=== PATIENT | male | born 2005 | race African-American/Black ===

== ENCOUNTER 2025-01-12 09:05 | Outpatient (AMB) | payer BC, SELFPAY ==
--- NOTE | 2025-01-12 09:07 | MHC.PC.OV ---
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 Intake Note: New Patient Criminal Legal Assistant Required: No Accompanied by: Self / Same As Patient Allergies No Known Allergies Allergy (Verified 01/12/25 09:10) Medication List - Last Reconciled 01/12/25 by Misbah Barrera MD No Known Home Meds Tobacco use date assessed: 01/12/25 Dental Screening Dental Screen Date: 01/12/25 Did you have a dental visit in the last 12 months?: Yes Did you have a dental problem in the last 6 months where you did not have access to dental care?: No Was dental information given to patient?: Patient has dentist HPI HPI Comments History of Present Illness Details History of Present Illness The patient is a 19 year old individual presenting for a general checkup and evaluation of a rash on the upper thigh. Rash on thigh: The patient reports a history of a rash on the upper thigh that began approximately two weeks after a sexual encounter. Initially, the rash was described as fully red with dry skin. The rash resolved over time but the area still turns red with friction, such as rubbing in the shower. The patient denies any itching associated with the rash. The patient previously used hydrocortisone cream for 3-4 days, which helped the rash resolve. The patient had a negative STD test about a month ago. Health Maintenance: The patient has no known past medical history, no prior surgeries, and takes no medications. The patient denies smoking or illicit drug use but reports drinking alcohol on some weekends. The patient is sexually active with multiple partners and reports using condoms. Surgical History: - No known surgical history. Medications: - The patient is not currently taking any medications. - The patient previously used hydrocortisone cream for a rash on the thigh. Social History: - Substance Use: The patient denies smoking and drug use, but reports drinking alcohol on some weekends. - Sexual History: The patient is sexually active with multiple partners and reports using condoms. 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 - Housing: The patient has two houses and sometimes resides in [place]. Diagnostic Results: - STI Testing: The patient reports a negative STI test one month prior to the visit. Past Medical History - No known past medical history. Health Maintenance - Comprehensive laboratory studies will be performed to provide an overall picture of the patient's health. - Lab orders include a complete blood count, comprehensive metabolic panel, chlamydia, gonorrhea, hemoglobin A1c, hepatitis B and C, HIV, lipid panel, magnesium, syphilis screen, thyroid panel, urinalysis, vitamin B12, folate, and vitamin D. - The patient will follow up in two weeks to discuss the lab results. [facility] Medical History (Updated 01/12/25 @ 09:28 by Misbah Barrera MD) Alcohol use Dermatitis Social History (Updated 01/12/25 @ 09:12 by Nicko Kemp CMA) Housing: House Alcohol intake: current Patient Tobacco Use Status: Never used Tobacco e-Cigarette/Vaping Use: Never Used service: No Current occupational status: employed Current occupation: Self Employed Cognitive needs: No Hearing needs: No Vision needs: Yes Questionnaire PHQ-9 Over the last 2 weeks, how often have you been bothered by any of the following problems? 1. Little interest or pleasure in doing things: not at all 2. Feeling down, depressed, or hopeless: not at all 3. Trouble falling or staying asleep, or sleeping too much: not at all 4. Feeling tired or having little energy: not at all 5. Poor appetite or overeating: not at all 6. Feeling bad about yourself - or that you are a failure or have let yourself or your family down: not at all 7. Trouble concentrating on things, such as reading the newspaper or watching television: not at all 8. Moving or speaking so slowly that other people could have noticed. Or the opposite - being so fidgety or restless that you have been moving around a lot more than usual: not at all 9. Thoughts that you would be better off or of hurting yourself in some way: not at all Total score: 0 Depression Screening Interpretation: Negative Depression Screening Done: Yes 03347 - PHQ-9 Billing: Yes Source: Developed by Drs. Milo Hernandez, Charity Hobson, Sebastian Orr and colleagues, with an educational kylee from [employer]. Thrive Questionnaire Date Thrive assessed: 01/12/25 I am a: Patient What is your living situation today?: I have a steady place to live Within the past 12 months, did the food you bought not last and you didn't have the money to get more?: Never true Within the past 12 months, did you worry whether your food would run out before you got money to buy more?: Never true Do you have trouble paying for medicines?: No Do you have trouble getting transportation to medical appointments?: No Do you have trouble paying your heating and electricity bill?: No Do you have trouble taking care of your child, family member or friend?: No Are you currently unemployed and looking for a job?: No Are you interested in more education?: No Please select the resources that you would like help with: None Currently or been in a relationship where the following occur: No concerns reported THRIVE Score: 0 AUDIT C Alcohol Use Questionnaire (AUDIT-C) 1. How often do you have a drink containing alcohol?: 2-3 times a week 2. How many drinks containing alcohol do you have on a typical day when you are drinking?: 7 to 9 3. How often do you have six or more drinks on one occasion?: Weekly Total Score: 9 SANJU-7 AMB Questionnaire SANJU-7 Date SANJU - 7 assessed: 01/12/25 Feeling nervous, anxious, or on edge: 0 = Not at all Not being able to stop or control worryin = Not at all Worrying too much about different things: 0 = Not at all Trouble relaxin = Not at all Being so restless that it is hard to sit still: 0 = Not at all Becoming easily annoyed or irritable: 0 = Not at all Feeling afraid as if something awful might happen: 0 = Not at all Total SANJU-7 score (0-4 normal; 5-9 mild; 10-14 moderate; 15-21 severe): 0 Source: Developed by Drs. Milo Hernandez, Charity Hobson, Sebastian Orr and colleagues, with an educational kylee from [employer]. SANJU-7 Assessment Billing SANJU-7 Assessment Tool: SANJU-7 Assessment 88500 Review of Systems Narrative Review of Systems - Constitutional: Denies fevers and chills. - Integumentary: Reports a history of a rash on the upper thigh that is now resolved but the skin becomes erythematous with friction. - Denies pruritus. - Gastrointestinal: Reports normal bowel function. - Neurological: Reports sleeping well. 10-point ROS reviewed and negative except as noted in HPI Physical exam (Primary Care) Vital Signs: Last Vital Signs Temp 98.1 F 01/12/25 09:13 Pulse 66 01/12/25 09:13 Resp 18 01/12/25 09:13 BP 125/59 L 01/12/25 09:13 Pulse Ox 100 01/12/25 09:13 Oxygen Delivery Method Room Air 01/12/25 09:13 BMI result Body Mass Index 26.4 Tobacco/Smoking Status: Tobacco use Status Tobacco use date assessed 01/12/25 01/12/25 09:15 Patient Tobacco Use Status Never used Tobacco 01/12/25 09:15 e-Cigarette/Vaping Use Never Used 01/12/25 09:15 PHQ-9: PHQ-9 Score PHQ-9: Total score 0 01/12/25 09:15 Depression Screening Interpretation: Negative Thrive Assessment: Date of Thrive Assessment Date Thrive assessed 01/12/25 01/12/25 09:15 Currently or been in a relationship where the following occur: No concerns reported Narrative Physical Exam General: Well-appearing, in no acute distress. Vital signs: Within normal limits. HEENT: Normocephalic, atraumatic. PERRLA, EOMI. Conjunctiva clear, sclera anicteric. Oropharynx clear, mucous membranes moist. TMs intact bilaterally. Neck: Supple, no lymphadenopathy, no thyromegaly, no JVD or carotid bruits. Cardiovascular: RRR, normal S1/S2, no murmurs, rubs, or gallops. Peripheral pulses 2+ and symmetric. No edema. Respiratory: Lungs clear to auscultation bilaterally, no wheezes, rales, or rhonchi. Normal effort. Abdomen: Soft, non-tender, non-distended. Normoactive bowel sounds. No hepatosplenomegaly, no masses. MSK: Full range of motion, no joint swelling or deformity. Normal gait. Skin: Warm, dry, intact. Rash on upper thigh that turns red with friction or rubbing. No itching reported. No other rashes, lesions, or pallor. Neuro: Alert and oriented x3. Cranial nerves II-XII intact. Strength 5/5 throughout. Sensation intact. Reflexes 2+ symmetric. Normal coordination and gait. Psych: Appropriate mood and affect. Normal judgment and insight. Coding Level of Care Code New Pt Level 4 (03664) Diagnoses Dermatitis L30.9 Alcohol use F10.90 Additional Codes SANJU-7 Assessment Billing - SANJU-7 Assessment Tool: SANJU-7 Assessment 91128 ([id number]) PHQ-9 - 19988 - PHQ-9 Billing: Yes ([id number]) Assessment & Plan Assessment & Plan (1) Dermatitis: Code(s): L30.9 - Dermatitis, unspecified Category: Medical (2) Alcohol use: Code(s): F10.90 - Alcohol use, unspecified, uncomplicated Category: Social Hx Plan Consent The patient provided verbal consent for a sexually transmitted disease (STD) screening and comprehensive blood work. Patient was informed and verbally consented to the use of an ambient scribe for clinic note documentation during this visit. Plan 1. Dermatitis Of Thigh - The differential diagnosis for the patient's thigh rash includes dermatitis or a fungal infection. - A trial of a prescription cream will be initiated; the prescription will be sent to the patient's pharmacy after it is confirmed at checkout. Discussion Notes I discussed with the patient that the rash on the thigh could potentially be nothing, or it could be a form of dermatitis or a fungal infection. I explained that I will order a comprehensive set of blood and urine tests to get an overall picture of the patient's health, which will screen for various conditions including STIs, diabetes, cholesterol, and vitamin deficiencies. I informed the patient that a prescription cream will be sent for the rash and that they should get the lab work done today. We will have a follow-up appointment in two weeks to review all the results and address any abnormalities. Patient Instructions - Go to the lab today to have your blood drawn and provide a urine sample. - Make sure the front end mechanic has your correct pharmacy information, and a prescription cream will be sent there for you to use on the rash. - Please return to the clinic in two weeks to discuss your lab results. Medical Decision Making The patient is a 19-year-old individual presenting for a general wellness check and evaluation of a thigh rash. The rash history, with onset after a sexual encounter, prompted concern for a sexually transmitted infection, but the patient reports a recent negative screen. The current presentation of erythema with friction and a previous response to hydrocortisone suggests an inflammatory process like dermatitis. A fungal infection is also on the differential. Given the patient's request for a checkup and reported sexual activity with multiple partners, comprehensive lab work, including a full STI panel, is indicated for health maintenance and screening. The plan is to initiate a trial of a topical cream for the rash, obtain lab work, and follow up in two weeks to review results and reassess the condition. Total Time Statement 30 min Total time spent caring for the patient today includes pre-visit chart review, documentation, review of laboratory and diagnostic imaging results, medication reconciliation, medically necessary evaluation, counseling on diagnoses, care coordination, ordering appropriate tests and medications, review of tests performed by other providers, reporting test results to the patient, and communication with other healthcare providers. Orders: Orders Hepatitis B Surface Antigen Today Z13.9 - Encounter for screening, unspecified Syphilis Screen Today Z13.9 - Encounter for screening, unspecified Hepatitis C Antibody Today Z13.9 - Encounter for screening, unspecified TSH reflex Free T4 Today Z13.9 - Encounter for screening, unspecified HIV Ab/Ag Today Z13.9 - Encounter for screening, unspecified UA CC w/rflx Micro + Cult Today Z13.9 - Encounter for screening, unspecified Lipid Panel Today Z13.9 - Encounter for screening, unspecified Vitamin B12 and Folate Today Z13.9 - Encounter for screening, unspecified Vitamin D 1,25 dihydroxy Today Z13.9 - Encounter for screening, unspecified Complete Blood Count Auto Diff Today Z13.9 - Encounter for screening, unspecified Comprehensive Met. Panel Today Z13.9 - Encounter for screening, unspecified CT NG by PCR Urine Today Z13.9 - Encounter for screening, unspecified Hemoglobin A1c Today Z13.9 - Encounter for screening, unspecified Magnesium Today Z13.9 - Encounter for screening, unspecified Hepatitis B Surface Antibody Today Z13.9 - Encounter for screening, unspecified Medications: New nystatin-triamcinolone 100,000-0.1 unit/g-% 1 appl topical BID 30 grams 0RF L30.9 - Dermatitis, unspecified
[2025-01-12 09:13] VITALS: BP 125/59; PULSE 66; RESP 18; TEMP 36.7; O2SAT 100; BMI 26.4
== END 2025-01-12 09:27 | disposition home or self-care (01) ==
PROVIDERS: PCP Student in an Organized Health Care Education/Training Program; Visit Provider Student in an Organized Health Care Education/Training Program
DX: L30.9 Dermatitis, unspecified (principal); F10.90 Alcohol use, unspecified, uncomplicated

== ENCOUNTER 2025-01-12 09:05 | Outpatient (REF) | payer BC, SELFPAY ==
--- OUTSIDE RECORDS SUMMARY | 2025-01-12 11:10 | XMS_ITS | Clinical Summary ---
Author Organization [facility] Address [address] [place] [id number] Phone Care Team Providers Care Hook Up Name Role Phone Unavailable Primary Care Provider Unavailabl e Allergies Active Allergy Reactions Criticality Noted Date Comments Cephalosporins 09/01/2018 Medications cetirizine (ZyrTEC Allergy) 10 MG tabletIndicatio ns:Nasal congestion Take 1 tablet (10 mg total) by mouth nightly as needed for allergies. 30 tablet 1 5 Active fluticasone 50 MCG/ACT nasal sprayIndication s:Nasal congestion Administer 1 spray into each nostril daily. 3 Units 4 5 12/25/19 26 Active Active Problems Problem Noted Date Diagnosed Date Encounter for counseling for vxrzkqaqv-dg-vfbui transition 09/30/2024 Encounters Date Type Department Care Team Description 12/01/2024 Refill [facility] [address] [address] Lorna Pool PA Nasal congestion 11/09/2024 Telephone [facility] [address] [id number] Crystal Quiñones MD AMBER to Transfer OUT to [facility] to be completed from Last 3 Months Immunizations Immunization Administration Dates Next Due DTaP 5 09/09/2009, 6,02/22/2005,12/25,2004 HPV Vaccine 9 Valent 10/08/2022,09/25/2021,09/23 Hep A, ped/adol 10/03/2011,08/29/2006,02/21/2006 Hep B, ped/adol 02/22/2005, 5,2004,08/28 Hib (PRP-T) 12/17/2005, 6,2004,10/27 IPV 09/02/2008, 6,2004,10/27 Influenza, injectable, quadr ivalent, preservative free 12/21/2016,12/21/2015,11/17/2014,01/03 Influenza, injectable, trivalent 12/26/2010 Influenza, injectable, triva lent, preservative free 11/19/2011,11/24/2008,12/17/2007,12/11,12/17/2005,02/22/2005 MMR 09/09/2009,12/17/2005 Meningococcal B Trumenba 10/08/2022,09/25/2021 Meningococcal Conj (Menactra) MCV4P 09/23/2020,1 02/19/2015 Pneumococcal Conjugate 09/18/2005,2005,2004,10/27 Tdap 12/21/2015 Varicella 09/02/2008,09/18/2005 Social History Tobacco Use Types Packs/Day Years Used Date Smoking Tobacco: Never Smokeless Tobacco: Never Alcohol Use Standard Drinks/Week Comments Yes 0 (1 standard drink = 0.6 oz pur e alcohol) 1 x weekly Hunger/Food Answer Date Recorded In the last 12 months, did y ou or your family ever eat less than you felt you should because there wasn't enough money for food? No 09/30/2024 Stable Housing Answer Date Recorded Are you worried that in the next 2 months you may not have stable housing? No 09/30/2024 Transportation Concerns Answer Date Rec orded In the last 12 months, have you or your family ever had to go without healthcare because you didn't have a way to get there? No 09/30/2024 Hazards in Home Answer Date Recorded Think about the place you li ve. Do you have problems with any of the following? Pests (mice or roaches), mold, no/not working smoke detectors, water leaks, no window guards. No 2024 Financing Utilities Answer Date Recorde d In the last 12 months, has t he electric, gas, oil, or water company threatened to shut off your services in your home? No 09/30/2024 Safety at Home Answer Date Recorded Are you or your family worried about feeling saf e in your home? No 09/30/2024 Outside Support Answer Date Recorded Do you feel that you need mo re support from other people or programs to help you care for yourself or your family? No 09/30/2024 Understanding Health Concerns Answer Da te Recorded Do you need help understandi ng your or your child's healthcare needs (diagnosis, medications, plan, etc.)? No 09/30/2024 Financing Health Concerns Answer Date R ecorded In the last 12 months, was t here a time when your child needed to see a doctor or get medications or supplies but could not because of cost? No 09/30/2024 Missing School or Work Answer Date Nikita rded Did you or your child miss s chool or work because of a health problem that could have been avoided? No 09/30/2024 Child Education Answer Date Recorded Do you have concerns about y our/your child's learning or behavior in school, preschool, or daycare? No 09/30/2024 Sex and Gender Information Value Date Recorded Sex Assigned at Not on file Legal Sex Male 6:27 PM EDT Gender Identity Not on file Sexual Orientation Straight 09/30/2024 4: 12 PM EDT Last Filed Vital Signs Vital Sign Reading Time Taken Comments Blood Pressure 114/78 09/30/2024 3:54 PM EDT Pulse 59 09/30/2024 3:54 PM EDT Temperature 36.8 C (98.2 F) 09/30/2024 3:54 PM EDT Respiratory Rate 16 09/30/2024 3:54 PM EDT Oxygen Saturation 99% 09/30/2024 3:54 PM EDT Inhaled Oxygen Concentration - - Weight 67.4 kg (148 lb 9.6 oz) 09/30/2024 3:54 P M EDT Height 161.2 cm (5' 3.47 ) 09/30/2024 3:54 PM ED T Body Mass Index 25.94 09/30/2024 3:54 PM EDT Plan of Treatment Health Maintenance Due Date Last Done Comments Influenza Vaccines (#1) 2024 12/22/19 17, 12/21/2015, 11/17/2014, Additional history exists COVID-19 Vaccine ( - 2024-2 6 season) 2024 DTaP,Tdap,and Td Vaccines (7 - Td or Tdap) 12/20/2025 12/21/2015, 09/09/2009, 12/17/2005, Additional history exists Hepatitis B Vaccines Completed 02/22/2005, 2004, 2004, Additional history exists Pneumococcal Vaccine Completed 09/18/2005, 02/22/2005, 2004, Additional history exists HIB Vaccines Completed 12/17/2005, 06/2005, 2004, Additional history exists IPV Vaccines Completed 09/02/2008, 06/2005, 2004, Additional history exists Varicella Vaccines Completed 09/02/2008, 09/18/2005 MMR Vaccines Completed 09/09/2009, 12/17/2005 Hepatitis A Vaccines Completed 10/03/2011, 08/29/2006, 02/21/2006 Meningococcal Vaccine Completed 09/23/2020, 016 HPV Vaccines Completed 10/08/2022, 09/2021, 09/23/2020 Men B Vaccine Completed 10/08/2022, 09/25/2021 Procedures * Due to [place] Rentabilities law, this organization might not be sharing sensitive test results. Procedure Name Priority Date/Time Associated Diagnosis Comments XR NASAL BONES Routine 11/04/2024 10:33 AM EDT Nasal congestion from Last 3 Months Results * Due to [place] Rentabilities law, this organization might not be sharing sensitive test results. * X-Ray, nasal bones, complete, minimum of three views (11/04/2024 10:33 AM EDT) Anatomical Region Laterality Modality Head and Neck Radiographic Trisha ging 11/04/2024 10:3 3 AM EDT Narrative 11/04/2024 10:46 AM EDT Nasal Bone Comp Min 3 Views Reason: nasal congestion; Order Comment: java front end web developer contacting provider to change exam to sinus exam, pt waiting in waiting room - 11 04 2024 10:19:32 EDT COMPARISON: None FINDINGS: The sinuses imaged are free of disease. The nasal bones are intact. Sella turcica is normal in size. IMPRESSION: Normal. WSN: [id number] Ordering Physician: Lorna Pool Dictated By: Evin Thapa MD Dictated Date/Time: 11/04/24 10:46 a Reviewed By: Evin Thapa MD Signed By: Evin Thapa MD Signed Date/Time: 11/04/24 10:46 am Transcribed By: CHRIS Transcribed Date/Time: 11/04/24 10:45 am Lorna LANDIS IMG XR PROCEDURES Final Result from Last [address] [place] [address] [place] [address] BLUE CARD OUT OF STATE
--- OUTSIDE RECORDS SUMMARY | 2025-01-12 11:10 | XMS_ITS ---
Author Name [facility] Organization Unknown Care Team Organization Name Specialty Phone Email Start Date End [facility] 01/03/2024
--- OUTSIDE RECORDS SUMMARY | 2025-01-12 11:10 | XMS_ITS | Encounter Summary ---
Author Organization [facility] Address [address] [place] [id number] Phone Care Team Providers Care Typesetter Apprentice Name Role Phone Crystal Quiñones MD Primary Care Provider [phone] Encounter Details Date Type Department Care Team (Late st Contact Info) Description 09/18/2010 Conversion Encounter [facility] - [address] [address] Social History Tobacco Use Types Packs/Day Years Used Date Smoking Tobacco: Never Assessed Sex and Gender Information Value Date Recorded Sex Assigned at Not on file Legal Sex Male 6:27 PM EDT Gender Identity Not on file Sexual Orientation Straight 09/30/2024 4: 12 PM EDT documented as of this encounter Plan of Treatment Not on file documented as of this encounter Visit Diagnoses Not on filedocumented in this encounter Care Teams Typesetter Apprentice Relationship Specialty Start Date End Date Crystal Quiñones MD [address] [place] [id number] PCP - General Pediatrics 12/19/21 12/03/24 documented as of this encounter
--- OUTSIDE RECORDS SUMMARY | 2025-01-12 11:10 | XMS_ITS | Encounter Summary ---
Author Organization [facility] Address [address] [place] [address] Phone Care Team Providers Care Communication Assistant Name Role Phone Crystal Quiñones MD Primary Care Provider [phone] Reason for Visit * Reason Onset Date Comments AMBER to Transfer OUT to [facility] to be completed 11/09/2024 Encounter Details Date Type Department Care Team (Late st Contact Info) Description 11/09/2024 Telephone [facility] - [place] [address] [place] [phone] Crystal Quiñones MD [address] [place] [address] AMBER to Transfer OUT to [facility] to be completed Social History Tobacco Use Types Packs/Day Years [...] PM EDT documented as of this encounter Miscellaneous Notes * Telephone Encounter - Melyssa Ruiz - 01/12/2025 10:40 AM EST Patient called back, fee collected. * Telephone Encounter - Deana Hoffmann - 01/12/2025 10:29 AM EST New AMBER received from [facility] this time. Placed in bin for follow up. I let Aristides know there is another fee because we are sending to a different office - he said he will call mom and give us a call back * Telephone Encounter - Araceli Horton - 12/04/2024 10:54 AM EDT Records faxed, scanned into media. * Telephone Encounter - Araceli Horton - 11/20/2024 2:51 PM EDT Approved for processing. * Telephone Encounter - Melyssa Ruiz - 11/09/2024 3:40 PM EDT Fee collected. * Telephone Encounter - Leesa Reynolds - 11/09/2024 3:01 PM EDT AMBER to Transfer OUT to [facility] to be completed. Please fax the records to [phone]. Mom said will pay for records to be released in the morning on 11/10/24. documented in this encounter Plan of Treatment Not on file documented as of this encounter Visit Diagnoses Not on filedocumented in this encounter Care Teams Communication Assistant Relationship Specialty Start Date End Date Crystal Quiñones MD [address] [facility] [place] [id number] PCP - General Pediatrics 12/19/21 12/03/24 documented as of this encounter
[2025-01-12 13:07] LABS: Appearance Urine Clear; Glucose Urine UA Negative (Negative); PH 7.0 (5.0-9.0); Specific Gravity - Urine 1.015 (1.005-1.025)
[2025-01-12 13:47] LABS: MANUAL DIFF FLAG NO
[2025-01-12 14:16] LABS: Hematocrit 46.8 % (42.0-52.0); Hemoglobin 15.3 g/dl (14.0-18.0); Imm Gran Abs Auto 0.02 X10*3/uL (0.00-0.03); Imm Gran Pct Auto 0.5 % (0.0-0.4); Lymphocytes Absolute Auto 1.2 X10*3/uL (1.2-4.9); Mean Corpuscular HGB Conc 32.7 g/dl (31.0-36.0); Mean Corpuscular Hemoglobin 31.8 pg (27.0-33.0); Mean Corpuscular Volume 97.3 fL (80.0-98.0); NRBC Abs Auto 0.000 X10*3/uL (0.0-0.012); NRBC Pct Auto 0.0 /100WBC (0.0-0.2); Platelet Count 265 X10*3/uL (160-400); Red Blood Count 4.81 X10*6/uL (4.60-5.80); White Blood Count 3.7 X10*3/uL (4.8-10.8)
[2025-01-12 14:55] LABS: Alanine Aminotransferase 19 U/L (0-40); Albumin Level 4.5 g/dL (3.5-5.0); Alkaline Phosphatase 72 U/L (39-117); Anion Gap 10 (12-20); Aspartate Amino Transferase 27 U/L (5-37); Blood Urea Nitrogen 12 mg/dL (9-16); Calcium 9.0 mg/dL (8.4-10.2); Carbon Dioxide 28 mmol/L (22-29); Chloride 106 mmol/L (96-108); Cholesterol 193 mg/dL (<200); Estimated Glomerular Filt Rate > 60; HDL Cholesterol 57 mg/dL (>40); Magnesium 2.0 mg/dL (1.6-2.6); Potassium 4.3 mmol/L (3.3-5.1); Sodium 140 mmol/L (135-145); Total Protein 7.1 g/dL (6.5-8.0); Triglycerides 67 mg/dL (<150)
[2025-01-12 15:14] LABS: Folate 7.3 ng/mL (> or = 4.0); Vitamin B12 547 pg/mL (200-900)
[2025-01-12 15:15] LABS: CT PCR Urine NOT DETECTED (Not Detect.); NG PCR Urine NOT DETECTED (Not Detect.)
[2025-01-13 05:12] LABS: Syphilis Screen Nonreactive (Nonreactive)
[2025-01-13 05:31] LABS: HBS Num1 12.66 mIU/mL (0-7.99); HBsAGNum1 0.48 S/CO (0.00-0.99); HIV Num 1 0.06 S/CO (0.00-0.99); Hepatitis B Surface Antigen Negative (Negative); ~HepC Num1 0.08 S/CO (0.00-0.79); ~Hepatitis B Surface Antibody REACTIVE (Nonreactive); ~Hepatitis C Antibody Nonreactive (Nonreactive)
[2025-01-17 15:12] LABS: VITAMIN D (1,25 OH) D3 49 pg/mL; Vit D (1,25-Dihydroxy) Total 49 pg/mL (18-72); Vitamin D (1,25 OH) D2 <8 pg/mL
== END 2025-01-12 09:06 | disposition home or self-care (01) ==
LOC: HO.HKASLDS 09:05
PROVIDERS: PCP Student in an Organized Health Care Education/Training Program; Visit Provider Student in an Organized Health Care Education/Training Program
DX: Z13.9 Encounter for screening, unspecified (principal); L30.9 Dermatitis, unspecified; F10.90 Alcohol use, unspecified, uncomplicated
CPT/HCPCS: 80053; 80061; 81003; 82607; 82652; 82746; 83036; 83735; 84443; 85025; 86706; 86780; 86803; 87340; 87389; 87491; 87591; 96127

== ENCOUNTER 2025-01-28 08:43 | Outpatient (AMB) | payer BC, SELFPAY ==
--- NOTE | 2025-01-28 08:47 | MHC.PC.OV ---
Vital Signs 01/28/25 08:49 Weight 148 lb 4 oz BP 121/57 L Blood Pressure Location Rt brachial Position Sitting Pulse 59 Pulse Source Pulse Oximeter Temp 98.2 F Temp Source Oral Pulse Oximetry (%) 100 Oxygen Delivery Method Room Air Intake Visit Reasons: 2 week follow up Accompanied by: Self / Same As Patient Allergies No Known Allergies Allergy (Verified 01/28/25 08:48) Medication List - Last Reconciled 01/28/25 by Misbah Barrera MD nystatin-triamcinolone 100,000-0.1 unit/g-% 1 appl topical BID Tobacco use date assessed: 01/28/25 Dental Screening Dental Screen Date: 01/28/25 Did you have a dental visit in the last 12 months?: Yes Was dental information given to patient?: Patient has dentist HPI HPI Comments History of Present Illness Details History of Present Illness The patient is a 19-year-old male presenting with a review of laboratory results and follow-up regarding a previous skin condition. Mild leukopenia: The patient was informed of slightly low white blood cell counts detected in recent lab results. He reports feeling well with no associated symptoms such as fever or chills. No historical events appear linked to this finding. History of skin reaction/fungal infection: The patient previously experienced a skin condition characterized irritation. He was provided with a Nystatin antifungal Triamcinalone combination cream, which has resolved the problem. He denies any current skin issues and has not experienced recurrence of symptoms since the application of the treatment. Medications: - Nystatin antifungal Triamcinalone combination cream (for previous skin condition) Social History: - Reports use of protective measures such as condoms. - No current smoking, alcohol, or drug use discussed. Diagnostic Results: - Labs: - White blood cells: Slightly low - Other CBC components: Normal - Electrolytes, renal, and liver function: Good - Lipid panel: LDL slightly elevated on a non-fasting sample, otherwise normal - Vitamin levels and thyroid function: Normal - STD screenings: All negative Past Medical History Health Maintenance - All discussed lab tests, apart from mild leukopenia, were within normal limits. - Screening for syphilis, chlamydia, gonorrhea, hepatitis B, hepatitis C, and HIV returned negative. - Encouragement of safe sexual practices. 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 1. Little interest or pleasure in doing things: not at all 2. Feeling down, depressed, or hopeless: not at all 3. Trouble falling or staying asleep, or sleeping too much: not at all 4. Feeling tired or having little energy: not at all 5. Poor appetite or overeating: not at all 6. Feeling bad about yourself - or that you are a failure or have let yourself or your family down: not at all 7. Trouble concentrating on things, such as reading the newspaper or watching television: not at all 8. Moving or speaking so slowly that other people could have noticed. Or the opposite - being so fidgety or restless that you have been moving around a lot more than usual: not at all 9. Thoughts that you would be better off or of hurting yourself in some way: not at all Total score: 0 Depression Screening Interpretation: Negative Depression Screening Done: Yes 62224 - PHQ-9 Billing: Yes Source: Developed by Drs. Milo Hernandez, Charity Hobson, Sebastian Orr and colleagues, with an educational kylee from [employer]. Thrive Questionnaire Date Thrive assessed: 01/28/25 I am a: Patient What is your living situation today?: I have a steady place to live Within the past 12 months, did the food you bought not last and you didn't have the money to get more?: Never true Within the past 12 months, did you worry whether your food would run out before you got money to buy more?: Never true Do you have trouble paying for medicines?: No Do you have trouble getting transportation to medical appointments?: No Do you have trouble paying your heating and electricity bill?: No Do you have trouble taking care of your child, family member or friend?: No Are you currently unemployed and looking for a job?: No Are you interested in more education?: No Please select the resources that you would like help with: None Currently or been in a relationship where the following occur: No concerns reported THRIVE Score: 0 SANJU-7 AMB Questionnaire SANJU-7 Date SANJU - 7 assessed: 01/12/25 Source: Developed by Drs. Milo Hernandez, Charity Hobson, Sebastian Orr and colleagues, with an educational kylee from [employer]. Review of Systems Narrative Review of Systems - General: Denies fever, chills, or significant illness - Skin: Denies current rashes or skin lesions 10-point ROS reviewed and negative except as noted in HPI Physical exam (Primary Care) Vital Signs: Last Vital Signs Temp 98.2 F 01/28/25 08:49 Pulse 59 01/28/25 08:49 BP 121/57 L 01/28/25 08:49 Pulse Ox 100 01/28/25 08:49 Oxygen Delivery Method Room Air 01/28/25 08:49 Tobacco/Smoking Status: Tobacco use Status Tobacco use date assessed 01/28/25 01/28/25 08:50 Patient Tobacco Use Status Never used Tobacco 01/28/25 08:50 e-Cigarette/Vaping Use Never Used 01/28/25 08:50 PHQ-9: PHQ-9 Score PHQ-9: Total score 0 01/28/25 08:50 Depression Screening Interpretation: Negative Thrive Assessment: Date of Thrive Assessment Date Thrive assessed 01/28/25 01/28/25 08:50 Currently or been in a relationship where the following occur: No concerns reported Narrative Physical Exam General: Well-appearing, in no acute distress. Vital signs: Within normal limits. HEENT: Normocephalic, atraumatic. PERRLA, EOMI. Conjunctiva clear, sclera anicteric. Oropharynx clear, mucous membranes moist. TMs intact bilaterally. Neck: Supple, no lymphadenopathy, no thyromegaly, no JVD or carotid bruits. Cardiovascular: RRR, normal S1/S2, no murmurs, rubs, or gallops. Peripheral pulses 2+ and symmetric. No edema. Respiratory: Lungs clear to auscultation bilaterally, no wheezes, rales, or rhonchi. Normal effort. Abdomen: Soft, non-tender, non-distended. Normoactive bowel sounds. No hepatosplenomegaly, no masses. MSK: Full range of motion, no joint swelling or deformity. Normal gait. Skin: Warm, dry, intact. No rashes, lesions, or pallor. Neuro: Alert and oriented x3. Cranial nerves II-XII intact. Strength 5/5 throughout. Sensation intact. Reflexes 2+ symmetric. Normal coordination and gait. Psych: Appropriate mood and affect. Normal judgment and insight. Office Procedures Flu Questionnaire Does the patient have a severe egg allergy?: No Does the patient have severe life threatening allergies?: No Does the patient have a fever or illness today?: No Has the patient ever had Guillain-Hawkins Syndrome?: No Has the patient ever had any past reaction to a flu shot?: No Immunizations Fluarix [id number] (PF) 45 mcg (15 mcg x 3)/0.5 mL IM syringe Performing Provider: Misbah Barrera MD Performing Location: [facility] Documented (not given) by: Kendra Eldridge CMA on 01/28/25 08:51 Reason Not Given: Patient Refused Coding Level of Care Code Est Pt Level 3 (89829) Add On Problem Visit Only Diagnoses Dermatitis L30.9 Leukopenia D72.819 Additional Codes PHQ-9 - 80880 - PHQ-9 Billing: Yes ([id number]) Assessment & Plan Assessment & Plan (1) Dermatitis: Code(s): L30.9 - Dermatitis, unspecified Category: Medical (2) Leukopenia: Code(s): D72.819 - Decreased white blood cell count, unspecified Category: Medical Plan Consent The patient provided verbal consent to discuss and review the laboratory results, including any potential future monitoring. Risks and benefits of monitoring his white blood cell count were discussed, and the patient understood the low level of clinical concern at present. Consent was obtained directly from the patient. Patient was informed and verbally consented to the use of an ambient scribe for clinic note documentation during this visit. Plan 1. Wellness Check - Lab results were reviewed. - The white blood cell count was noted to be slightly low, but this is not a current concern. - The plan is to repeat the count in the future to monitor for any trend. - All other labs, including electrolytes, renal function, glucose, liver function, lipids, and infectious disease screening, were normal. - The patient was advised to follow up in six months. 2. Mild Leukopenia - Continue monitoring the white blood cell count to check for trends. - No immediate clinical concern; plan to repeat lab testing during future visits. 3. History Of Skin Reaction/Fungal Infection - The previous application of Nystatin/Triamcinalone resolved the condition. - Ensure maintenance of good skin care hygiene and safe practices to prevent recurrence. Discussion Notes I discussed the lab results with the patient, emphasizing the low white blood cell count and noting it as mildly significant but not urgent. I assured him we would continue to monitor its course. We also reviewed the successful treatment of his previous skin condition with Nystatin/Triamcinalone cream, which appears resolved with no current symptoms. We addressed his negative STD screening results and emphasized maintaining protective practices. We agreed on scheduling a follow-up visit to reevaluate the leukopenia and address any potential changes. Patient Instructions - Continue using good hygiene practices and safe sexual behaviors. - Follow up for a repeat blood test to monitor white blood cell levels. - Return to the clinic if any new symptoms develop or if concerned. Medical Decision Making The patient's mild leukopenia does not require immediate intervention, given the absence of concerning symptoms and recent negative infectious screenings. I elected to monitor his leukocyte count with repeat testing to determine any progression. The history of a skin issue resolved efficiently with Nystatin/Triamcinalone cream, which confirms the diagnosis of a likely fungal infection. My approach is to reassure and support safe practices, consistent follow-up, and reassessment as clinically indicated in six months. Total Time Statement 20 min Total time spent caring for the patient today includes pre-visit chart review, documentation, review of laboratory and diagnostic imaging results, medication reconciliation, medically necessary evaluation, counseling on diagnoses, care coordination, ordering appropriate tests and medications, review of tests performed by other providers, reporting test results to the patient, and communication with other healthcare providers. Orders: Orders Influenza [id number] Immunization Today Z23 - Encounter for immunization
[2025-01-28 08:49] VITALS: BP 121/57; PULSE 59; TEMP 36.8; O2SAT 100
== END 2025-01-28 08:56 | disposition home or self-care (01) ==
LOC: HO.HMCFMS 08:44
PROVIDERS: PCP Student in an Organized Health Care Education/Training Program; Visit Provider Student in an Organized Health Care Education/Training Program
DX: L30.9 Dermatitis, unspecified (principal); D72.819 Decreased white blood cell count, unspecified; Z23 Encounter for immunization

== ENCOUNTER → 2025-01-28 08:43 | Outpatient (BNVA) | payer BC, SELFPAY | PROVIDERS: Visit Provider Student in an Organized Health Care Education/Training Program | DX: L30.9 Dermatitis, unspecified (principal); D72.819 Decreased white blood cell count, unspecified; Z28.89 Immunization not carried out for other reason | CPT/HCPCS: 90471; 96127 ==